=== PATIENT | female | born 1985 | race Caucasian/White ===

== ENCOUNTER 2020-04-23 09:38 | Emergency (ER) | payer OTHER, MEDICAID ==
[~2020-04-23] VITALS: Ht 172 cm; Wt 67.0 kg
[2020-04-23 10:26] LABS: HEMOGLOBIN 12.7 G/DL (11.5-16.0); MEAN PLATELET VOLUME 11.2 FL (7.4-10.4); WHITE BLOOD COUNT 8.2 10^3/uL (4.3-11.0)
--- NOTE | 2020-04-23 10:28 | NUR ---
Patient's [place] phone # [phone]
--- NOTE | 2020-04-23 10:40 | ED GU-Female ---
General Chief Complaint: OB < 20 WEEKS Stated Complaint: 9 WKS ;POSSIBLE MISCARRIAGE Nursing Triage Note: Pt reports onset of vaginal bleeding last night w/ clots with back cramping. Pt reports minimal bleeding this morning. Patient sees OB Dr. Loepz in [place], [place]. Nursing Sepsis Screen: No Definite Risk Source: patient History of Present Illness Date Seen by Provider: Apr 23, 2020 Time Seen by Provider: 10:06 Initial Comments PT ARRIVES VIA POV PT STATES SHE IS 9 1/2 WEEKS , BY ULTRASOUND DONE A WEEK AGO LMP 02/16/20--WAS ON PROGESTERONE FOR 10 DAYS THE END OF FEBRUARY ( ONLY TIME SHE HAD TAKEN IT) , FOR NEW ONSET OF SHORT PERIODS--LASTING 21-24 DAYS, THEN DID NOT HAVE A PERIOD AFTER THAT LAST NIGHT AROUND 2330, SHE GOT UP TO GO TO THE BATHROOM, AND HAS SOME BLEEDING WITH CLOTS. SHE PUT ON PAD, THEN WOKE UP AGAIN AT 0300 TO URINATE--NO BLOOD ON PAD, BUT HAD BLEEDING WITH CLOTS ON URINATION AGAIN. WOKE UP AT 0700 AND NO BLOOD ON PAD, AND BLED A LITTLE WHEN SHE URINATED, BUT NO BLEEDING SINCE--HAD A VERY TINY SPOT OF BLOOD ON PAD SINCE THEN AND IS NOT BLEEDING NOW HAD SLIGHT BACK ACHE LAST NIGHT, AND HAD VERY SLIGHT LOWER ABDOMINAL CRAMPING THIS MORNING, BUT NOT NOW PT AND FAMILY WERE ON A SHORT TRIP TO [place], AND DROVE HERE FROM THEIR HOTEL IN [place] TODAY--LIVES IN [place], [place] CALLED HER OB IN [place] TODAY, WHO TOLD HER SHE NEEDED TO GET CHECKED, SO CAME HERE PT HAD IN-OFFICE TEST, BUT NO ACTUAL DR VISIT HAD ULTRASOUND 1 WEEK AGO FIRST OB APPOINTMENT IS 04/30/20 PT IS (TRIPLETS BORN IN 2010 AT 33 1/2 WEEKS--NO COMPLICATIONS), AB 0 Allergies and Home Medications Patient Home Medication List Home Medication List Reviewed: Yes Review of Systems Review of Systems Constitutional: no symptoms reported; No dizziness Respiratory: no symptoms reported Cardiovascular: no symptoms reported Gastrointestinal: other (HAS HAD MORNING SICKNESS THE LAST COUPLE OF WEEKS, BUT NOT TODAY) Genitourinary: see HPI : Yes Expected Date of Delivery: Nov 19, 2020 LMP: Feb 16, 2020 Musculoskeletal: see HPI Skin: no symptoms reported Psychiatric/Neurological: No Symptoms Reported Endocrine: No Symptoms Reported Hematologic/Lymphatic: No Symptoms Reported Past Ynfytdc-Metwpp-Mupagw Hx Past Med/Social Hx: Reviewed and Corrections made Patient Social History Alcohol Use: Denies Use Recreational Drug Use: No Smoking Status: Never a Smoker Recent Foreign Travel: No Contact w/Someone Who Travel: No Recent Infectious Disease Expo: No Recent Hopitalizations: No Seasonal Allergies Seasonal Allergies: No Past Medical History Surgeries: Yes (sinus surgery) Section Respiratory: No Cardiac: No Neurological: No : Yes Expected Date of Delivery: Nov 19, 2020 Last Menstrual Period: Feb 16, 2020 Hx : 2 Hx Para: 3 (TRIPLETS BORN IN 2010 AT 33 1/2 WEEKS) Hx Total # of Abortions (Sp): 0 Reproductive Disorders: Yes (RIGHT OVARIAN CYST--TREATED WITH OCP'S) Female Reproductive Disorders: Ovarian Cyst Genitourinary: No Gastrointestinal: No Musculoskeletal: No Endocrine: No HEENT: No Cancer: No Psychosocial: No Integumentary: No Blood Disorders: No Physical Exam Vital Signs Vital Signs - First Documented 04/23/20 10:10 Temp 36.6 Pulse 68 Resp 18 B/P (MAP) 115/63 (80) Pulse Ox 100 O2 Delivery Room Air Capillary Refill : Less Than 3 Seconds Height, Weight, BMI Height: '" Weight: lbs. oz. kg; 22.00 BMI Method: General Appearance: WD/WN, no apparent distress Cardiovascular: normal peripheral pulses, regular rate, rhythm, no murmur Respiratory: normal breath sounds, no respiratory distress Gastrointestinal: normal bowel sounds, non tender, soft, no organomegaly Back: no CVA tenderness Extremities: normal inspection, normal capillary refill Neurologic/Psychiatric: no motor/sensory deficits, alert, normal mood/affect, oriented x 3 Skin: normal color, warm/dry Progress/Results/Core Measures Suspected Sepsis Recent Fever Within 48 Hours: No Infection Criteria Present: None New/Unexplained Altered Menta: No Sepsis Screen: No Definite Risk SIRS Temperature: Pulse: 68 Respiratory Rate: 18 Laboratory Tests 04/23/20 10:19: White Blood Count 8.2 Blood Pressure 115 /63 Mean: 80 Laboratory Tests 04/23/20 10:19: Platelet Count 174 Results/Orders Lab Results Laboratory Tests Test 04/23/20 10:19 Range/Units White Blood Count 8.2 4.3-11.0 10^3/uL Red Blood Count 4.29 L 4.35-5.85 10^6/uL Hemoglobin 12.7 11.5-16.0 G/DL Hematocrit 37 35-52 % Mean Corpuscular Volume 86 80-99 FL Mean Corpuscular Hemoglobin 30 25-34 PG Mean Corpuscular Hemoglobin Concent 35 32-36 G/DL Red Cell Distribution Width 13.0 10.0-14.5 % Platelet Count 174 130-400 10^3/uL Mean Platelet Volume 11.2 H 7.4-10.4 FL Human Chorionic Gonadotropin, Quant 91038 H <5 MIU/ML My Orders Orders - ERANAGUS BolañosA Daphnie HERRERA Cbc No Diff (04/23/20 10:06) Hcg,Quantitative (04/23/20 10:06) Abo Rh Type (04/23/20 10:06) Us Ob Single Fetus<14 [id number] (04/23/20 10:06) Vital Signs/I&O 04/23/20 10:10 Temp 36.6 Pulse 68 Resp 18 B/P (MAP) 115/63 (80) Pulse Ox 100 O2 Delivery Room Air Capillary Refill : Less Than 3 Seconds Blood Pressure Mean: 80 Progress Note : Progress Note NO BLEEDING OR PAIN DURING STAY Diagnostic Imaging Comments OB ULTRASOUND--PER RADIOLOGIST REPORT AT 1122 INDICATION: Heavy vaginal bleeding. There is an intrauterine gestational sac containing a pole. [place]-rump length measurements 27 mm consistent with 9 weeks 4 days gestation. heart rate was recorded at 172 bpm. There is an area of subchorionic hemorrhage measuring 3.2 x 1.3 cm. Adnexa are unremarkable. IMPRESSION: Single live IUP 9 weeks 4 days gestational age with estimated date of confinement sonographically of 11/22/2020. There is a subchorionic hemorrhage, as described. Reviewed: Reviewed by Me Departure Impression Primary Impression: Threatened in first trimester Additional Impression: Subchorionic hemorrhage in first trimester Disposition: 01 HOME, SELF-CARE Condition: Stable Departure-Patient Inst. Referrals: NO,LOCAL PHYSICIAN (PCP) Primary Care Physician Patient Instructions: Bleeding In Early , Subchorionic Bleeding Add. Discharge Instructions: HOME, REST LOTS OF CLEAR LIQUIDS NOTHING IN VAGINA--NO TAMPONS, DOUCHING OR INTERCOURSE KEEP AN ACCURATE PAD COUNT--RETURN TO ER IF SOAKING MORE THAN 1 MAXI PAD AN HOUR FOLLOW UP WITH YOUR OB THIS WEEK FOR FURTHER CARE All discharge instructions reviewed with patient and/or family. Voiced understanding. RAMESH BARILLAS DO Apr 23, 2020 10:40
--- NOTE | 2020-04-23 11:18 | Diagnostic Imaging Report ---
PROCEDURE: US OB SINGLE FETUS <14 WKS. TECHNIQUE: Multiple real-time grayscale images were obtained over the gravid uterus in various projections. INDICATION: Heavy vaginal bleeding. There is an intrauterine gestational sac containing a pole. [place]-rump length measurements 27 mm consistent with 9 weeks 4 days gestation. heart rate was recorded at 172 bpm. There is an area of subchorionic hemorrhage measuring 3.2 x 1.3 cm. Adnexa are unremarkable. IMPRESSION: Single live IUP 9 weeks 4 days gestational age with estimated date of confinement sonographically of 11/22/2020. There is a subchorionic hemorrhage, as described. Dictated by: Dictated on workstation # [id number]
--- NOTE | 2020-04-23 11:23 | NUR ---
Donald judge in [facility] - 04/23/20 at 1123 by PMCCLURE AMB TO ROOM
--- NOTE | 2020-04-23 11:23 | NUR ---
AMB TO BATHROOM
[2020-04-23 11:34] VITALS: BP 115/63
== END 2020-04-23 11:33 | disposition home or self-care (01) ==
LOC: ER 09:40
DX: O20.0 Threatened abortion (principal); O20.8 Other hemorrhage in early pregnancy; Z3A.09 9 weeks gestation of pregnancy
CPT/HCPCS: 36415; 76801; 84702; 85027; 86900; 86901